=== PATIENT | female | born 1975 | race Caucasian/White ===

== ENCOUNTER 2018-08-02 12:17 | Emergency (ER) | payer OTHER ==
[~2018-08-02] VITALS: Ht 177.8 cm; Wt 100.0 kg
[~2018-08-02 12:17] MED LIST: ACEDIPPM
[2018-08-02 12:58] LABS: BASOPHILS ABSOLUTE AUTO 0.02 K/mm3 (0.00-0.23); BASOPHILS PERCENT AUTO 0 % (0-2); EOSINOPHILS ABSOLUTE AUTO 0.02 K/mm3 (0.00-0.68); EOSINOPHILS PERCENT AUTO 0 % (0-6); Hematocrit 44.5 % (33.0-51.0); IMMATURE GRAN ABSOLUTE AUTO 0.04 K/mm3 (0.00-0.10); IMMATURE GRAN PERCENT AUTO 0 % (0-1); LYMPHOCYTES ABSOLUTE AUTO 1.15 K/mm3 (0.84-5.20); LYMPHOCYTES PERCENT AUTO 8 % (21-46); MONOCYTES ABSOLUTE AUTO 0.46 K/mm3 (0.16-1.47); MONOCYTES PERCENT AUTO 3 % (4-13); Mean Corpuscular HGB 30.6 pg (26.0-34.0); Mean Corpuscular HGB Conc 33.7 g/dL (31.5-36.5); Mean Corpuscular Volume 91 fL (80-100); Mean Platelet Volume 9.4 fL (9.1-12.4); NEUTROPHILS ABSOLUTE AUTO 12.02 K/mm3 (1.96-9.15); NEUTROPHILS PERCENT AUTO 88 % (41-73); Platelet Count 258 K/mm3 (150-400); RDW Coefficient Variation 12.9 % (11.7-14.2); RDW Standard Deviation 42.5 fL (35.1-46.3); White Blood Cell Count 13.71 K/mm3 (4.00-11.30)
[2018-08-02 13:19] LABS: Alanine Aminotransfer (ALT/SGP 30 U/L (12-78); Albumin, Blood 3.8 g/dL (3.4-5.0); Albumin/Globulin Ratio 0.9 (0.8-1.8); Alk Phos 103 U/L (50-136); Anion Gap 7 mmol/L (6-16); Aspartate Aminotrans (AST/SGOT 19 U/L (12-37); Bilirubin, Total 0.5 mg/dL (0.1-1.0); Blood Urea Nitrogen 9 mg/dL (8-24); Bun/Creatinine Ratio 13.7 (12.0-20.0); CO2, Blood 24 mmol/L (21-32); Calcium, Blood 9.1 mg/dL (8.5-10.1); Chloride, Blood 107 mmol/L (98-108); Creatinine, Blood 0.66 mg/dL (0.40-1.00); Globulin, Blood 4.1 g/dL (2.2-4.0); Glomerular Filtration Rate >60 (60-); Glucose, Blood 107 mg/dL (70-99); Sodium, Blood 138 mmol/L (136-145); Total Protein, Blood 7.9 g/dL (6.4-8.2)
[2018-08-02 14:10] LABS: Source, Urine Clean Catch
[2018-08-02 14:13] LABS: Appearance, Urine Hazy (Clear); Bilirubin, Urine Neg (Neg); Blood, Urine 4+ (Neg); Color, Urine Yellow (P-Yellow); Glucose Qualitative, Urine Neg (Neg); Ketones, Urine 3+ (Neg); Leukocyte Esterase, Urine Neg (Neg); Nitrite, Urine Neg (Neg); Protein, Urine 1+ (Neg); Specific Gravity, Urine 1.015 (1.003-1.022); Urobilinogen, Urine NORM (Normal)
[2018-08-02 14:20] LABS: Hyaline Casts 0-2 /lpf (0-2); Mucus Light (0-Heavy)
[2018-08-02 14:21] LABS: Red Blood Cells, Urine 0-2 /hpf (0-2); Squamous Epithelial Cells Few /hpf (Few); Transitional Epithelial Cells Few /hpf (0-Rare); White Blood Cells, Urine 0-2 /hpf (0-5)
[2018-08-02 14:22] LABS: Bacteria Rare /hpf
[2018-08-02] MEDS ORDERED: ONDA4ODT MM (15:47)
== END 2018-08-02 16:10 | disposition home or self-care (01) ==
LOC: ER 12:17
PROVIDERS: Emergency Medicine
DX: R11.2 Nausea with vomiting, unspecified (principal); R10.84 Generalized abdominal pain; E86.0 Dehydration
CPT/HCPCS: 36415; 80053; 81001; 81025; 83690; 85025; 93005; 93010; 96374; 99283-25; J2405; J7120

== ENCOUNTER 2019-11-01 12:57 | Observation (INO) | payer OTHER ==
[~2019-11-01] VITALS: Ht 177.8 cm; Wt 100.8 kg
[~2019-11-01 12:57] MED LIST changes: +ONDA4ODT MM
[2019-11-01 13:17] LABS: BASOPHILS ABSOLUTE AUTO 0.02 K/mm3 (0.00-0.23); BASOPHILS PERCENT AUTO 0 % (0-2); EOSINOPHILS ABSOLUTE AUTO 0.03 K/mm3 (0.00-0.68); EOSINOPHILS PERCENT AUTO 0 % (0-6); Hematocrit 44.1 % (33.0-51.0); Hemoglobin 14.8 g/dL (11.5-16.0); IMMATURE GRAN ABSOLUTE AUTO 0.08 K/mm3 (0.00-0.10); IMMATURE GRAN PERCENT AUTO 1 % (0-1); LYMPHOCYTES PERCENT AUTO 15 % (21-46); MONOCYTES ABSOLUTE AUTO 0.56 K/mm3 (0.16-1.47); MONOCYTES PERCENT AUTO 4 % (4-13); Mean Corpuscular HGB 30.1 pg (26.0-34.0); Mean Corpuscular HGB Conc 33.6 g/dL (31.5-36.5); Mean Corpuscular Volume 90 fL (80-100); Mean Platelet Volume 9.4 fL (9.1-12.4); NEUTROPHILS ABSOLUTE AUTO 11.21 K/mm3 (1.96-9.15); NEUTROPHILS PERCENT AUTO 80 % (41-73); Platelet Count 276 K/mm3 (150-400); RDW Coefficient Variation 12.6 % (11.7-14.2); RDW Standard Deviation 41.5 fL (35.1-46.3); Red Blood Cell Count 4.91 M/mm3 (3.80-5.20)
[2019-11-01 13:34] LABS: Alanine Aminotransfer (ALT/SGP 33 U/L (12-78); Albumin, Blood 4.2 g/dL (3.4-5.0); Albumin/Globulin Ratio 1.1 (0.8-1.8); Alk Phos 106 U/L (50-136); Anion Gap 10 mmol/L (6-16); Aspartate Aminotrans (AST/SGOT 18 U/L (12-37); Bilirubin, Total 0.4 mg/dL (0.1-1.0); Blood Urea Nitrogen 21 mg/dL (8-24); Bun/Creatinine Ratio 34.4 (12.0-20.0); CO2, Blood 21 mmol/L (21-32); Calcium, Blood 9.3 mg/dL (8.5-10.1); Chloride, Blood 108 mmol/L (98-108); Creatinine, Blood 0.61 mg/dL (0.40-1.00); Globulin, Blood 3.9 g/dL (2.2-4.0); Glomerular Filtration Rate >60 (60-); Glucose, Blood 130 mg/dL (70-99); Potassium, Blood 3.7 mmol/L (3.5-5.5); Sodium, Blood 139 mmol/L (136-145); Total Protein, Blood 8.1 g/dL (6.4-8.2)
[2019-11-01 15:01] LABS: Source, Urine Clean Catch
[2019-11-01 15:09] LABS: Blood, Urine 5+ (Neg); Glucose Qualitative, Urine Neg (Neg); Ketones, Urine 2+ (Neg); Leukocyte Esterase, Urine 1+ (Neg); Nitrite, Urine Pos (Neg); Protein, Urine 3+ (Neg); Specific Gravity, Urine 1.025 (1.003-1.022); Urobilinogen, Urine 1+ (Normal)
[2019-11-01 15:16] LABS: Appearance, Urine Turbid (Clear); Bilirubin, Urine 1+ (Neg); Color, Urine Brown (P-Yellow)
[2019-11-01 15:25] LABS: Red Blood Cells, Urine 50-100 /hpf (0-2)
[2019-11-01 15:28] LABS: Squamous Epithelial Cells Many /hpf (Few)
[2019-11-01 15:29] LABS: Amorphous Mod (0-Heavy); Bacteria Many /hpf
[2019-11-01 16:50] LABS: Source, Urine Catheter
[2019-11-01 16:53] LABS: Blood, Urine 5+ (Neg); Glucose Qualitative, Urine Neg (Neg); Ketones, Urine 2+ (Neg); Leukocyte Esterase, Urine 1+ (Neg); Nitrite, Urine Neg (Neg); Protein, Urine 2+ (Neg); Specific Gravity, Urine 1.015 (1.003-1.022); Urobilinogen, Urine 1+ (Normal)
[2019-11-01 17:11] LABS: Appearance, Urine Hazy (Clear); Bilirubin, Urine 1+ (Neg); Color, Urine Yellow (P-Yellow)
[2019-11-01 17:12] LABS: Red Blood Cells, Urine 50-100 /hpf (0-2); White Blood Cells, Urine 0-2 /hpf (0-5)
[2019-11-01 17:13] LABS: Amorphous Light (0-Heavy); Bacteria Mod /hpf; Mucus Light (0-Heavy); Squamous Epithelial Cells Mod /hpf (Few)
[2019-11-01] MEDS ORDERED: Zofran4 MG PO (17:27)
[2019-11-01] MEDS ORDERED: KETO10 PO (17:27)
[2019-11-01] MEDS ORDERED: Norco 5-325 Ta1 EACH PO (17:27)
[2019-11-01] MEDS ORDERED: CEPH500 PO (17:30)
--- NOTE | 2019-11-01 21:00 | NUR ---
RECEIVED HAND OFF FROM JUANITA GONZALEZ USING SBAR. TRANSPORTED TO ROOM 216 VIA STRETCHER. TRANSFERED SELF TO BED WITH STANDBY ASSIST, TOLERATED WELL. AAO X3, ALVAREZ, FOLLOWS ALL COMMANDS. ORIENTED TO ROOM, CALL SYSTEM, AND POC, VOICES UNDERSTANDING. RESPIRATIONS EVEN AND UNLABORED ON ROOM AIR. LUNG SOUNDS CLEAR BILATERALLY. ABDOMEN SOFT AND NONDISTENDED. BOWEL SOUNDS PRESENT IN ALL QUADS. REPORTS LAST BM ON AM OF 11/01/19, WAS NORMAL FOR HER, BUT THEN TURNED RUNNY. STATES THAT THIS HAPPENS FROM TIME TO TIME. C/O RIGHT FLANK PAIN, THAT IS INCREASING AT THIS TIME. WILL MEDICATE PER EMAR. WAS TREATED FOR N/V WHILE IN ER. CONTINENT OF BOWEL AND BLADDER. INSTRUCTED TO CALL FOR ASSISTANCE WITH BATHROOM NEEDS, VOICES UNDERSTANDING. DENIES FURTHER NEEDS OR WANTS AT THIS TIME. SAFETY MEASURES IN PLACE. ADMISSION ASSESSMENT IN PROGRESS. WILL CONTINUE TO MONITOR.
--- NOTE | 2019-11-02 06:26 | NUR ---
SHIFT SUMMARY LYING ON LEFT SIDE WITH HOB AT 33 DEGREES. PAIN WELL MANAGED WITH NORCO X2 DOSES AFTER GETTING IT UNDER CONTROL WITH DILAUDID X1 DOSE. NO FURTHER C/O N/V SINCE 1 DOSE OF PHENERGAN. HAS BEEN UP COMMODE X1 THIS SHIFT AND URINATED DARK EBEN COLORED URINE WITH ALOT OF SEDIMENT. URINE IS BEING FILTERED. DENIES FURTHER NEEDS OR WANTS AT THIS TIME. SAFETY MEASURES IN PLACE. WILL GIVE HAND OFF TO ONCOMING SHIFT USING SBAR,
--- NOTE | 2019-11-02 15:17 | NUR ---
DR MIRELES RECENTLY HERE TO SEE PT PER HER/FAMILY REQ.
--- NOTE | 2019-11-02 16:21 | NUR ---
SHIFT SUMMARY PT DRINKING AND TOLERATING DIET THIS AFTERNOON. PT VOIDING. FAMILY IN/OUT OF ROOM TODAY. PT URINE BEEN BEING STRAINED. IVF INFUSING. DR MIRELES BEEN TO SEE PT AND FAMILY. PT BEEN ASSISTED WTIH ADL'S PRN. DISCUSSED PAIN MGMT.
[2019-11-03 04:45] LABS: Anion Gap 7 mmol/L (6-16); Blood Urea Nitrogen 13 mg/dL (8-24); Bun/Creatinine Ratio 14.3 (12.0-20.0); CO2, Blood 23 mmol/L (21-32); Calcium, Blood 8.3 mg/dL (8.5-10.1); Chloride, Blood 108 mmol/L (98-108); Creatinine, Blood 0.91 mg/dL (0.40-1.00); Glomerular Filtration Rate >60 (60-); Glucose, Blood 91 mg/dL (70-99); Potassium, Blood 3.6 mmol/L (3.5-5.5); Sodium, Blood 138 mmol/L (136-145)
--- NOTE | 2019-11-03 05:12 | NUR ---
SHIFT SUMMARY: KIMI IS A&OX4. SHE HAS COMPLAINED OF PAIN THROUGHOUT THE SHIFT FOR WHICH ONE 5 MG TABLET OF ROXICODONE SHE REPORTS IS EFFECTIVE. SHE DID COMPLAIN OF NAUSEA TOWARDS THE END OF THE SHIFT FOR WHICH SHE REPORTED ZOFRAN WAS EFFECTIVE. SHE AMBULATES TO THE BATHROOM WITH ONLY STANDBY ASSISTANCE. IV TO LEFT HAND PATENT ALTHOUGH SHE REPORTS THAT IT DOES STING, SHE DECLINED A NEW IV START. THERE ARE NO SIGNS OF INFLAMMATION. SHE REPORTS THAT HER PAIN HAS CHANGED FROM FLANK PAIN TO LOW ABDOMINAL PAIN. SHE IS TOLERATING PO INTAKE AND REPORTS THAT THE CRACKERS ARE ALSO HELPFUL FOR THE NAUSEA. SHE IS LYING IN BED WITH HER CALL LIGHT IN REACH. SHE IS ABLE TO MAKE HER NEEDS KNOWN.
--- NOTE | 2019-11-03 09:35 | NUR ---
DR MIRELES HERE TO SEE PT,DISCUSSED PT'S STATUS.
--- NOTE | 2019-11-03 17:57 | NUR ---
SHIFT SUMMARY PT TOLERATING DIET. PT VOIDING. URINE BEING STRAINED. PT BEEN UP AND AMBULATING IN ROOM. PT HAD SHOWER TODAY. DR MIRELES BEEN TO SEE PT. PO INTAKE ENCOURAGED. PT DRINKING WELL. PT BEEN ASSISTED WITH ADL'S PRN. PT USING [employer] LIGHT APPR.
--- NOTE | 2019-11-04 05:26 | NUR ---
SHIFT SUMMARY PATIENT'S PAIN IN HER RT SIDE, RELATED TO KIDNEY STONE, IS NO LONGER PRESENT. THIS PAIN RESOLVED AT 1930. SHE NO LONGER WANTED HER IV FLUID RUNNIG, SHE WAS ABLE TO TAKE LARGE AMOUNTS OF PO FLUIDS. SHE IS VOIDING WELL AND NO STONE HAS BEEN DISCOVERED IN URINE. SHE IS COMPLAINING OF CHRONIC BACK PAIN THIS AM, NAPROXYN GIVEN. NO OTHER ACUTE ISSUES.
--- NOTE | 2019-11-04 08:54 | NUR ---
PT STATES THAT R SIDE PAIN HAS RESOLVED-DOES HAVE C/O BACK PAIN BUT PT BELIEVES IT IS R/T THE BED, DENIES NEED FOR PAIN MEDICATION. AMBULATING HALLWAYS INDEPENDENTLY. PT IS HOPING TO DC HOME TODAY.
[2019-11-04] MEDS ORDERED: TAMS.4ER PO (10:39)
--- NOTE | 2019-11-04 11:18 | NUR ---
DISCHARGE PT DISCHARGED HOME FROM UNIT AT APROX 1051 FROM UNIT. PT GIVEN WRITTEN AND VERBAL DISCHARGE INSTRUCTIONS AND VERBALIZED UNDERSTANDING OF THESE INSTRUCTIONS. IV REMOVED, PT TOLERATED WELL. RX FOR FLOMAX FAXED TO [facility]. WHEELCHAIR TO CAR.
== END 2019-11-04 10:51 | disposition home or self-care (01) ==
LOC: ER 12:57 → ERHOLD 12:58 → SURS 20:33
PROVIDERS: Emergency Medicine; Internal Medicine; Physician Assistant; ADMIT Internal Medicine
DX: N13.2 Hydronephrosis with renal and ureteral calculous obstruction (principal); K80.20 Calculus of gallbladder without cholecystitis without obstruction; K57.30 Diverticulosis of large intestine without perforation or abscess without bleeding; F17.200 Nicotine dependence, unspecified, uncomplicated; E66.01 Morbid (severe) obesity due to excess calories; Z68.31 Body mass index [BMI] 31.0-31.9, adult; Z91.048 Other nonmedicinal substance allergy status; Z91.018 Allergy to other foods
CPT/HCPCS: 36415; 74018; 74176; 76770; 80048; 80053; 81001; 81025; 83690; 85025; 87086; 96365; 96372; 96375; 96376; 99285-25; A9270-GY; G0378; J0696; J1170; J1644; J1885; J2405; J2550; J7030; P9612

== ENCOUNTER 2019-12-14 13:33 | Emergency (ER) | payer OTHER ==
[~2019-12-14] VITALS: Ht 177.8 cm; Wt 95.2 kg
[~2019-12-14 13:33] MED LIST changes: +CEPH500 PO; +KETO10 PO; +Norco 5-325 Ta1 EACH PO; +TAMS.4ER PO; +Zofran4 MG PO
[2019-12-14 14:30] LABS: Source, Urine Clean Catch
[2019-12-14 14:42] LABS: Bilirubin, Urine Neg (Neg); Blood, Urine 5+ (Neg); Glucose Qualitative, Urine Neg (Neg); Ketones, Urine 1+ (Neg); Leukocyte Esterase, Urine 1+ (Neg); Nitrite, Urine Neg (Neg); Protein, Urine 2+ (Neg); Urobilinogen, Urine 1+ (Normal)
[2019-12-14 14:43] LABS: Appearance, Urine Hazy (Clear); Color, Urine Yellow (P-Yellow)
[2019-12-14 14:48] LABS: Amorphous Light (0-Heavy); Bacteria Mod /hpf; Squamous Epithelial Cells Few /hpf (Few)
[2019-12-14 14:49] LABS: Calcium Oxalate Crystals Mod /hpf; Cholesterol Crystals Few /hpf
[2019-12-14 14:51] LABS: BASOPHILS ABSOLUTE AUTO 0.05 K/mm3 (0.00-0.23); BASOPHILS PERCENT AUTO 0 % (0-2); EOSINOPHILS ABSOLUTE AUTO 0.08 K/mm3 (0.00-0.68); EOSINOPHILS PERCENT AUTO 0 % (0-6); Hematocrit 45.3 % (33.0-51.0); Hemoglobin 15.4 g/dL (11.5-16.0); IMMATURE GRAN ABSOLUTE AUTO 0.07 K/mm3 (0.00-0.10); IMMATURE GRAN PERCENT AUTO 0 % (0-1); LYMPHOCYTES ABSOLUTE AUTO 2.83 K/mm3 (0.84-5.20); LYMPHOCYTES PERCENT AUTO 14 % (21-46); MONOCYTES ABSOLUTE AUTO 1.37 K/mm3 (0.16-1.47); MONOCYTES PERCENT AUTO 7 % (4-13); Mean Corpuscular HGB 30.3 pg (26.0-34.0); Mean Corpuscular Volume 89 fL (80-100); Mean Platelet Volume 9.3 fL (9.1-12.4); NEUTROPHILS ABSOLUTE AUTO 15.92 K/mm3 (1.96-9.15); NEUTROPHILS PERCENT AUTO 79 % (41-73); Platelet Count 306 K/mm3 (150-400); RDW Coefficient Variation 12.3 % (11.7-14.2); RDW Standard Deviation 40.5 fL (35.1-46.3); Red Blood Cell Count 5.09 M/mm3 (3.80-5.20); White Blood Cell Count 20.32 K/mm3 (4.00-11.30)
[2019-12-14 15:14] LABS: Alanine Aminotransfer (ALT/SGP 28 U/L (12-78); Albumin, Blood 4.1 g/dL (3.4-5.0); Alk Phos 105 U/L (50-136); Anion Gap 8 mmol/L (6-16); Aspartate Aminotrans (AST/SGOT 16 U/L (12-37); Bilirubin, Total 0.3 mg/dL (0.1-1.0); Blood Urea Nitrogen 18 mg/dL (8-24); Bun/Creatinine Ratio 25.1 (12.0-20.0); CO2, Blood 22 mmol/L (21-32); Calcium, Blood 9.5 mg/dL (8.5-10.1); Chloride, Blood 106 mmol/L (98-108); Creatinine, Blood 0.72 mg/dL (0.40-1.00); Glomerular Filtration Rate >60 (60-); Glucose, Blood 97 mg/dL (70-99); Potassium, Blood 4.2 mmol/L (3.5-5.5); Sodium, Blood 136 mmol/L (136-145); Total Protein, Blood 8.1 g/dL (6.4-8.2)
[2019-12-14] MEDS ORDERED: Flomax0.4 MG PO (18:25)
[2019-12-14] MEDS ORDERED: ONDA4ODT MM (18:25)
[2019-12-14] MEDS ORDERED: KETO10 PO (18:25)
== END 2019-12-14 18:38 | disposition home or self-care (01) ==
LOC: ER 13:33
PROVIDERS: Physician Assistant
DX: N13.2 Hydronephrosis with renal and ureteral calculous obstruction (principal); D72.829 Elevated white blood cell count, unspecified; F17.210 Nicotine dependence, cigarettes, uncomplicated; Z91.018 Allergy to other foods; Z88.8 Allergy status to other drugs, medicaments and biological substances
CPT/HCPCS: 36415; 51798; 74176; 80053; 81001; 85025; 87086; 96361; 96374; 96375; 99284-25; J0696; J1885; J2405; J7030

== ENCOUNTER 2020-03-23 11:21 | Emergency (ER) | payer OTHER ==
[~2020-03-23] VITALS: Ht 177.8 cm; Wt 103.5 kg
[~2020-03-23 11:21] MED LIST changes: +Flomax0.4 MG PO
== END 2020-03-23 14:40 | disposition home or self-care (01) ==
LOC: ER 11:21
DX: M79.602 Pain in left arm (principal); F17.210 Nicotine dependence, cigarettes, uncomplicated
CPT/HCPCS: 93005; 93010; 93971; 99284-25

== ENCOUNTER 2021-07-14 13:56 | Observation (INO) | payer OTHER ==
[~2021-07-14] VITALS: Ht 177.8 cm; Wt 104.3 kg
[2021-07-14 14:52] LABS: BASOPHILS ABSOLUTE AUTO 0.02 K/mm3 (0.00-0.23); BASOPHILS PERCENT AUTO 0 % (0-2); EOSINOPHILS ABSOLUTE AUTO 0.18 K/mm3 (0.00-0.68); EOSINOPHILS PERCENT AUTO 2 % (0-6); Hematocrit 43.8 % (33.0-51.0); Hemoglobin 14.5 g/dL (11.5-16.0); IMMATURE GRAN ABSOLUTE AUTO 0.03 K/mm3 (0.00-0.10); IMMATURE GRAN PERCENT AUTO 0 % (0-1); LYMPHOCYTES PERCENT AUTO 26 % (21-46); MONOCYTES ABSOLUTE AUTO 0.55 K/mm3 (0.16-1.47); MONOCYTES PERCENT AUTO 5 % (4-13); Mean Corpuscular HGB 29.4 pg (26.0-34.0); Mean Corpuscular HGB Conc 33.1 g/dL (31.5-36.5); Mean Corpuscular Volume 89 fL (80-100); Mean Platelet Volume 9.7 fL (9.1-12.4); NEUTROPHILS ABSOLUTE AUTO 7.11 K/mm3 (1.96-9.15); NEUTROPHILS PERCENT AUTO 67 % (41-73); Platelet Count 296 K/mm3 (150-400); RDW Coefficient Variation 12.4 % (11.7-14.2); Red Blood Cell Count 4.93 M/mm3 (3.80-5.20); White Blood Cell Count 10.59 K/mm3 (4.00-11.30)
[2021-07-14 15:16] LABS: Alanine Aminotransfer (ALT/SGP 36 U/L (12-78); Albumin, Blood 3.6 g/dL (3.4-5.0); Albumin/Globulin Ratio 0.9 (0.8-1.8); Alk Phos 135 U/L (50-136); Anion Gap 5 mmol/L (6-16); Aspartate Aminotrans (AST/SGOT 18 U/L (12-37); Bilirubin, Total 0.5 mg/dL (0.1-1.0); Blood Urea Nitrogen 13 mg/dL (8-24); Bun/Creatinine Ratio 18.4 (12.0-20.0); CO2, Blood 28 mmol/L (21-32); Calcium, Blood 9.4 mg/dL (8.5-10.1); Chloride, Blood 105 mmol/L (98-108); Creatinine, Blood 0.71 mg/dL (0.40-1.00); Globulin, Blood 3.8 g/dL (2.2-4.0); Glomerular Filtration Rate >60 (60-); Glucose, Blood 97 mg/dL (70-99); Potassium, Blood 3.8 mmol/L (3.5-5.5); Sodium, Blood 138 mmol/L (136-145); Total Protein, Blood 7.4 g/dL (6.4-8.2)
[2021-07-14 18:28] LABS: SARS-Cov-2 (COVID-19) PCR, MMC NEGATIVE (NEGATIVE)
[2021-07-15 04:35] LABS: Hematocrit 36.9 % (33.0-51.0); Hemoglobin 12.1 g/dL (11.5-16.0); Mean Corpuscular HGB 29.9 pg (26.0-34.0); Mean Corpuscular HGB Conc 32.8 g/dL (31.5-36.5); Mean Corpuscular Volume 91 fL (80-100); Mean Platelet Volume 9.3 fL (9.1-12.4); Platelet Count 196 K/mm3 (150-400); RDW Coefficient Variation 12.3 % (11.7-14.2); Red Blood Cell Count 4.05 M/mm3 (3.80-5.20); White Blood Cell Count 8.29 K/mm3 (4.00-11.30)
[2021-07-15 04:54] LABS: Alanine Aminotransfer (ALT/SGP 30 U/L (12-78); Albumin, Blood 2.9 g/dL (3.4-5.0); Albumin/Globulin Ratio 0.9 (0.8-1.8); Alk Phos 95 U/L (50-136); Anion Gap 6 mmol/L (6-16); Aspartate Aminotrans (AST/SGOT 16 U/L (12-37); Bilirubin, Total 0.8 mg/dL (0.1-1.0); Blood Urea Nitrogen 11 mg/dL (8-24); Bun/Creatinine Ratio 14.8 (12.0-20.0); CO2, Blood 27 mmol/L (21-32); Calcium, Blood 8.8 mg/dL (8.5-10.1); Chloride, Blood 107 mmol/L (98-108); Creatinine, Blood 0.74 mg/dL (0.40-1.00); Globulin, Blood 3.1 g/dL (2.2-4.0); Glomerular Filtration Rate >60 (60-); Glucose, Blood 92 mg/dL (70-99); Potassium, Blood 3.5 mmol/L (3.5-5.5); Sodium, Blood 140 mmol/L (136-145)
--- NOTE | 2021-07-15 06:35 | NUR ---
SHIFT SUMMARY: KIMI IS A&OX4. VSS, NO ACUTE EVENTS OVERNIGHT. SHE WAS MADE NPO AT MIDNIGHT. IV TO R HAND PATENT. SHE IS INDEPENDENT IN THE ROOM. SHE IS LYING IN BED WITH THE CALL LIGHT IN REACH. WILL REPORT TO DAY SHIFT RN.
--- NOTE | 2021-07-15 12:09 | NUR ---
post op vss, pt denies pain, tolerating PO intake. lap sites x 4, c/d/i, open to air with wound glue
[2021-07-15] MEDS ORDERED: OXYC5 PO (14:01)
[2021-07-15] MEDS ORDERED: ONDA4ODT MM (14:01)
== END 2021-07-15 14:30 | disposition home or self-care (01) ==
LOC: ER 13:56 → SURS 13:57
PROVIDERS: Physician Assistant; ADMIT Surgery
DX: K80.12 Calculus of gallbladder with acute and chronic cholecystitis without obstruction (principal); F17.200 Nicotine dependence, unspecified, uncomplicated; E66.9 Obesity, unspecified; Z91.018 Allergy to other foods; Z91.048 Other nonmedicinal substance allergy status; Z20.822 Contact with and (suspected) exposure to COVID-19; Z68.33 Body mass index [BMI] 33.0-33.9, adult
CPT/HCPCS: 36415; 74300; 76705; 80053; 83690; 85025; 85027; 88304; 96374; 96375; 99285-25; A9270; C1729; G0378; J0330; J1100; J1170; J1885; J2270; J2405; J2543; J2704; J3010; J7050; J7120; U0004

== ENCOUNTER 2022-09-22 18:48 | Emergency (ER) | payer OTHER ==
[~2022-09-22] VITALS: Ht 177.8 cm; Wt 108.9 kg
[~2022-09-22 18:48] MED LIST changes: +OXYC5 PO
[2022-09-22 20:08] LABS: Source, Urine Voided
[2022-09-22 20:15] LABS: Appearance, Urine Clear (Clear); Bilirubin, Urine Neg (Neg); Blood, Urine Neg (Neg); Glucose Qualitative, Urine Neg (Neg); Ketones, Urine 2+ (Neg); Leukocyte Esterase, Urine Neg (Neg); Nitrite, Urine Neg (Neg); Protein, Urine Neg (Neg); Urobilinogen, Urine NORM (Normal)
[2022-09-22 20:20] LABS: Color, Urine Pale Yellow (P-Yellow)
[2022-09-22 20:20] LABS: BASOPHILS ABSOLUTE AUTO 0.02 K/mm3 (0.00-0.23); BASOPHILS PERCENT AUTO 0 % (0-2); EOSINOPHILS PERCENT AUTO 0 % (0-6); Hematocrit 42.1 % (33.0-51.0); Hemoglobin 14.3 g/dL (11.5-16.0); IMMATURE GRAN ABSOLUTE AUTO 0.07 K/mm3 (0.00-0.10); IMMATURE GRAN PERCENT AUTO 1 % (0-1); LYMPHOCYTES ABSOLUTE AUTO 1.68 K/mm3 (0.84-5.20); LYMPHOCYTES PERCENT AUTO 11 % (21-46); MONOCYTES ABSOLUTE AUTO 0.71 K/mm3 (0.16-1.47); MONOCYTES PERCENT AUTO 5 % (4-13); Mean Corpuscular HGB 29.5 pg (26.0-34.0); Mean Corpuscular Volume 87 fL (80-100); Mean Platelet Volume 9.4 fL (9.1-12.4); NEUTROPHILS ABSOLUTE AUTO 12.52 K/mm3 (1.96-9.15); NEUTROPHILS PERCENT AUTO 84 % (41-73); Platelet Count 260 K/mm3 (150-400); RDW Coefficient Variation 12.2 % (11.7-14.2); RDW Standard Deviation 38.8 fL (35.1-46.3); Red Blood Cell Count 4.85 M/mm3 (3.80-5.20)
[2022-09-22 20:41] LABS: Alanine Aminotransfer (ALT/SGP 60 U/L (12-78); Albumin, Blood 4.3 g/dL (3.4-5.0); Albumin/Globulin Ratio 1.3 (0.8-1.8); Alk Phos 106 U/L (50-136); Anion Gap 9 mmol/L (6-16); Aspartate Aminotrans (AST/SGOT 26 U/L (12-37); Bilirubin, Total 0.5 mg/dL (0.1-1.0); Blood Urea Nitrogen 17 mg/dL (8-24); Bun/Creatinine Ratio 27.8 (12.0-20.0); CO2, Blood 23 mmol/L (21-32); Calcium, Blood 9.7 mg/dL (8.5-10.1); Chloride, Blood 108 mmol/L (98-108); Creatinine, Blood 0.61 mg/dL (0.40-1.00); Ethanol (Alcohol), Blood, Med <3 mg/dL; Globulin, Blood 3.4 g/dL (2.2-4.0); Glomerular Filtration Rate 110 (60-); Glucose, Blood 96 mg/dL (70-99); Potassium, Blood 3.8 mmol/L (3.5-5.5); Sodium, Blood 140 mmol/L (136-145); Total Protein, Blood 7.7 g/dL (6.4-8.2)
[2022-09-22 20:49] LABS: Prothrombin Time Results 10.5 Sec (9.7-11.5)
[2022-09-22 21:16] LABS: U Amphetamine Screen Not Detected; U Barbituate Screen Not Detected; U Benzodiazapine Screen Not Detected; U Buprenorphine Screen Not Detected; U Cannabinoids Screen DETECTED; U Cocaine Screen Not Detected; U Methadone Screen Not Detected; U Methamphetamine Screen Not Detected; U Opiates Screen Not Detected; U Oxycodone Screen Not Detected; U Phencyclidine Screen Not Detected; U Propoxyphene Screen Not Detected
[2022-09-22] MEDS ORDERED: LIDO700A20 TOP (23:31)
[2022-09-22] MEDS ORDERED: CYCL10 PO (23:31)
== END 2022-09-23 00:15 | disposition home or self-care (01) ==
LOC: ER 18:48
PROVIDERS: Emergency Medicine
DX: S20.212A Contusion of left front wall of thorax, initial encounter (principal); M79.674 Pain in right toe(s); V58.5XXA Driver of pick-up truck or van injured in noncollision transport accident in traffic accident, initial encounter; F17.210 Nicotine dependence, cigarettes, uncomplicated; F17.290 Nicotine dependence, other tobacco product, uncomplicated; Z91.02 Food additives allergy status; Z91.018 Allergy to other foods; Z91.048 Other nonmedicinal substance allergy status; Z79.899 Other long term (current) drug therapy
CPT/HCPCS: 36415; 71045; 71260; 73620; 80053; 81003; 83690; 85025; 85610; 93005; 93010; A9270; G0480; J1885; J3010; Q9967

== ENCOUNTER → 2024-01-02 | Outpatient (CLI) | payer OTHER ==
[~2024-01-02] MED LIST changes: +CYCL10 PO; +LIDO700A20 TOP
[2024-01-09 10:49] LABS: HPV GENOTYPE 16 Not Detected; HPV GENOTYPE 18 Not Detected; HPV HIGH RISK Not Detected; HPV SOURCE Cervical
== END ==
LOC: LAB EV 17:32 → LAB SHORT 17:32
PROVIDERS: Nurse Practitioner Family
DX: Z01.419 Encounter for gynecological examination (general) (routine) without abnormal findings (principal)
CPT/HCPCS: 87624; G0123

== ENCOUNTER 2024-09-22 12:47 | Emergency (ER) | payer OTHER ==
[~2024-09-22] VITALS: Ht 177.8 cm; Wt 99.8 kg
[2024-09-22] MEDS ORDERED: Tetanus,Diphtheria Toxd Ped/Pf 0.5 ML VIAL IM ONE (13:05)
[2024-09-22] MEDS ORDERED: Tetanus and Diphtheria Toxoid 0.5 ML INJ IM ONE (13:15)
[2024-09-22 15:00] VITALS: BP 154/84
== END 2024-09-22 15:08 | disposition home or self-care (01) ==
LOC: ER 12:47
DX: S81.011A Laceration without foreign body, right knee, initial encounter (principal); F17.210 Nicotine dependence, cigarettes, uncomplicated; W10.9XXA Fall (on) (from) unspecified stairs and steps, initial encounter; Z79.899 Other long term (current) drug therapy; Z91.018 Allergy to other foods; Z91.048 Other nonmedicinal substance allergy status
CPT/HCPCS: 12001; 73590; 90471; 90702; 90714; 99283-25